=== PATIENT | male | born 1960 | race Caucasian/White ===

== ENCOUNTER 2017-11-11 17:07 | Observation (INO) | payer OTHER ==
[~2017-11-11] VITALS: Ht 165.1 cm; Wt 96.6 kg
[2017-11-11 17:22] VITALS: BP 153/93
--- NOTE | 2017-11-11 17:30 | NUR ---
PT AMBULATES TO BED 4
--- NOTE | 2017-11-11 17:59 | NUR ---
PT COMES TO ER WITH FRIEND WHO REPORTS PT IS NOT HIMSELF. PT AAOX3, SLOW TO RESPOND. NO SLURRED SPEECH, NO FACIAL DROOP NOTED. JESSICA EQUAL HAND [employer] PERSON. PT STATES "I DONT FEEL WELL". FRIEND STATES HE'S BEEN LIKE THIS GETTING WORSE OVER THE LAST 3 DAYS. PT LIVES IN A ROOM IN A HOUSE WITH ROOMATES. PT DENIES ANY CP OR SOB. RESP EVEN AND UNLABORED, ABD SOFT, NT BS X 4 QUADS. SKIN W/D/I. PT ABLE TO FOLLOW SIMPLE COMMANDS AND ANSWER QUESTIONS AT A SLOW PACE. DR HAIR IN ROOM. HL INSERTED, CT SCAN CALLED.
[2017-11-11 18:33] LABS: BASOPHILS # (AUTO) 0.1 K/uL (0.00-0.22); BASOPHILS % (AUTO) 0.7 % (0.0-2.0); EOSINOPHILS # (AUTO) 0.3 K/uL (0-0.4); EOSINOPHILS % (AUTO) 3.3 % (0.0-4.0); HEMATOCRIT 40.5 % (36-52); HEMOGLOBIN 13.2 g/dL (12.0-18.0); LYMPHOCYTES # (AUTO) 1.9 K/uL (2.0-11.5); LYMPHOCYTES % (AUTO) 20.9 % (20.5-51.1); MEAN CORPUSCULAR HEMOGLOBIN 27 pg (27-31); MEAN CORPUSCULAR HGB CONC 33 g/dL (33-37); MEAN CORPUSCULAR VOLUME 82.2 fL (80-94); MONOCYTES % (AUTO) 11.8 % (1.7-9.3); NEUTROPHILS # (AUTO) 5.6 K/uL (1.8-7.7); NEUTROPHILS % (AUTO) 63.3 % (42.2-75.2); PLATELET COUNT (AUTO) 220 K/uL (140-450); RED BLOOD CELL COUNT(AUTO) 4.93 MIL/uL (4.20-6.10); RED CELL DISTRIBUTION WIDTH 15.6 % (11.6-13.7); WHITE BLOOD COUNT (AUTO) 8.9 K/uL (4.8-10.8)
--- NOTE | 2017-11-11 18:42 | NUR ---
NO ACUTE CHANGES IN CONDITION, IN NAD. PT STATES "I FEEL BETTER" , PT DENIES DRUG/ETOH ABUSE. URINE COLLECTED AND SENT TO LAB.
[2017-11-11 18:51] LABS: ANION GAP 11.5 (8-16); CREATININE 1.1 mg/dL (0.7-1.3); POTASSIUM 3.5 mmol/L (3.5-5.1)
[2017-11-11 18:53] LABS: APPEARANCE,URINE CLEAR (CLEAR); BILIRUBIN,URINE 1+ (NEGATIVE); BLOOD, URINE NEGATIVE (NEGATIVE); LEUKOCYTE ESTERASE ,URINE NEGATIVE (NEGATIVE); NITRITE, URINE NEGATIVE (NEGATIVE); PH,URINE 5.5 (5.0-9.0); UGLUCOSE TRACE (NEGATIVE)
[2017-11-11 18:55] LABS: ALBUMIN 2.9 g/dL (3.4-5.0); TOTAL BILIRUBIN 0.3 mg/dL (0.0-1.0)
[2017-11-11 18:57] LABS: BARBITURATE, URINE NEG. ng/ml (NEG <=200); BENZODIAZEPINE, URINE NEG. ng/mL (NEG <=200); CANNABINOID, URINE NEG. ng/mL (NEG <=50); COCAINE, URINE NEG. ng/mL (NEG <=300); OPIATE, URINE NEG. ng/mL (NEG <=2000); PHENCYCLIDINE SCREEN,URINE NEG. ng/mL (NEG <=25)
[2017-11-11 18:58] LABS: COLOR,URINE AMBER (YELLOW)
--- NOTE | 2017-11-11 19:00 | NUR ---
RECEIVED REPORT FROM JOSE ST. TRANSFER OF CARE AT THIS TIME.
[2017-11-11 19:02] LABS: CREATINE KINASE MB 0.6 ng/mL (0-3.6)
--- NOTE | 2017-11-11 20:37 | NUR ---
PT POOR HISTORIAN OF HOME MED LIST. PT CANNOT RECALL AT THIS TIME.
[2017-11-11 21:50] VITALS: BP 144/96
--- NOTE | 2017-11-11 21:50 | NUR ---
PATIENT ADMITTED TO THE UNIT FOR OBSERVATION. PATIENT IS AMBULATORY. AOX3. NO SIGNS AND SYMPTOMS OF DISTRESS NOTED. NO COMPLAINTS OF PAIN AT THIS TIME. PLAN OF CARE DISCUSSED WITH PATIENT. PATIENT VERBALIZED UNDERSTANDING. IV SITE NOTED ON RIGHT AC, SALINE LOCKED. BED IN LOWEST POSITION, SIDE RAILS UP AND CALL LIGHT WITHIN REACH. WILL CONTINUE TO MONITOR.
--- NOTE | 2017-11-11 21:50 | NUR ---
Patient will be admitted to care of DR. JENSEN. Admited to TELE. Will go to room 120B. Belongings list completed. Report to [facility].
--- NOTE | 2017-11-11 23:47 | NUR ---
SPOKE TO DR. BOOKER WHO IS COVERING FOR DR. JENSEN. ASKED HER ABOUT PATIENT ORDERS, AND IF SHE WANTED HIM ON ANY IVF OR MEDS. DR. BOOKER SAID NO, JUST OBSERVE HIM FOR TONIGHT, AND TO PUT HIM ON NEUROLOGICAL ASSESSMENT.
--- NOTE | 2017-11-11 23:48 | NUR ---
DR. BOOKER ALSO AWARE OF PATIENT'S ELEVATED DIASTOLIC BP
[2017-11-12] VITALS: BP 135/90
--- NOTE | 2017-11-12 02:00 | NUR ---
CHECKED ON PATIENT. PATIENT IS ASLEEP. NO SIGNS AND SYMPTOMS OF DISTRESS NOTED. BREATHING EVEN AND UNLABORED. WILL CONTINUE TO MONITOR.
--- NOTE | 2017-11-12 04:00 | NUR ---
CHECKED ON PATIENT. PATIENT IS ASLEEP. NO SIGNS AND SYMPTOMS OF DISTRESS NOTED. BREATHING EVEN AND UNLABORED. WILL CONTINUE TO MONITOR.
[2017-11-12 05:00] VITALS: BP 145/98
--- NOTE | 2017-11-12 07:20 | NUR ---
PATIENT REPORT GIVEN TO MORNING NURSE FOR CONTINUITY OF CARE. PATIENT IS IN STABLE CONDITION
--- NOTE | 2017-11-12 07:25 | NUR ---
RECEIVED PT'S REPORT FROM RECEPTIONIST DOCTOR'S OFFICE NURSE, ZIGGY, ABOUT THE PT'S STATUS. PT IS SLEEPING ON THE BED WITH A RIGHT AC SALINE LOCK G.20. NO SIGNS OF DISTRESS NOTED AT THIS TIME. CALL LIGHT WITHIN REACH. WILL CONTINUE TO MONITOR.
--- NOTE | 2017-11-12 07:40 | NUR ---
PT IS AWAKE LYING ON THE BED, VITAL SIGNS TAKEN, BP IS ELEVATED, RESULT REVEALED 151/108. NO OTHER UNTOWARD SIGNS NOTED AT THIS TIME. CALL LIGHT WITHIN REACH. WILL RECHECK BP AGAIN.
[2017-11-12 08:00] VITALS: BP 145/98
--- NOTE | 2017-11-12 08:25 | NUR ---
PT IS AWAKE LYING ON THE BED, BP WAS RECHECKED AGAIN, RESULT REVEALED 145/98. NO SIGNS OF DISTRESS NOTED ON THE PT. CALL LIGHT WITHIN REACH. WILL CONTINUE TO MONITOR.
--- NOTE | 2017-11-12 09:25 | NUR ---
PT IS LYING ON HIS LEFT LATERAL SIDE, SLEEPING COMFORTABLY. NO SIGN OF DISTRESS NOTED. CALL LIGHT WITHIN REACH. WILL CONTINUE TO MONITOR.
[2017-11-12 09:36] LABS: ANION GAP 10.5 (8-16); POTASSIUM 3.5 mmol/L (3.5-5.1)
[2017-11-12 09:38] LABS: BASOPHILS # (AUTO) 0.1 K/uL (0.00-0.22); BASOPHILS % (AUTO) 1.4 % (0.0-2.0); EOSINOPHILS # (AUTO) 0.4 K/uL (0-0.4); HEMATOCRIT 39.8 % (36-52); HEMOGLOBIN 13.3 g/dL (12.0-18.0); LYMPHOCYTES # (AUTO) 1.9 K/uL (2.0-11.5); LYMPHOCYTES % (AUTO) 20.7 % (20.5-51.1); MEAN CORPUSCULAR HEMOGLOBIN 28 pg (27-31); MEAN CORPUSCULAR HGB CONC 33 g/dL (33-37); MEAN CORPUSCULAR VOLUME 82.8 fL (80-94); MONOCYTES # (AUTO) 1.1 K/uL (0.8-1.0); NEUTROPHILS # (AUTO) 5.8 K/uL (1.8-7.7); NEUTROPHILS % (AUTO) 62.4 % (42.2-75.2); RED BLOOD CELL COUNT(AUTO) 4.81 MIL/uL (4.20-6.10); RED CELL DISTRIBUTION WIDTH 14.4 % (11.6-13.7); WHITE BLOOD COUNT (AUTO) 9.3 K/uL (4.8-10.8)
--- NOTE | 2017-11-12 10:00 | NUR ---
PT IS AWAKE, LYING ON THE BED. NEURO ASSESSMENT DONE. PT IS MORE ALERT AND ORIENTED NOW. CALL LIGHT WITHIN REACH. NO SIGN OF DISTRESS NOTED. WILL CONTINUE TO MONITOR.
[2017-11-12 10:01] LABS: EOSINOPHILS % (AUTO) 4.2 % (0.0-4.0); MONOCYTES % (AUTO) 11.3 % (1.7-9.3); PLATELET COUNT (AUTO) 194 K/uL (140-450)
--- NOTE | 2017-11-12 10:30 | NUR ---
PT IS ASLEEP ON THE BED. NO SIGN OF DISTRESS NOTED. CALL LIGHT WITHIN REACH. WILL CONTINUE TO MONITOR.
--- NOTE | 2017-11-12 11:00 | NUR ---
PT'S BROTHER, SLIM CALLED AND ASKED ABOUT THE PT'S CONDITION. INQUIRY WAS ANSWERED AND BROTHER WAS SATISFIED.
--- NOTE | 2017-11-12 11:30 | NUR ---
PT IS AWAKE LYING ON THE BED, VITAL SIGNS TAKEN, BP RESULT REVEALED 144/102. NO SIGN OF DISTRESS NOTED AT THIS TIME. CALL LIGHT WITHIN REACH. WILL CONTINUE TO MONITOR.
--- NOTE | 2017-11-12 11:50 | NUR ---
PT WAS SEEN BY THE NEURO DOCTOR, DR. BRIGHT. PT IS SEATED ON THE BED AND WITH FOOD TRAY IN FRONT AND IS ABOUT TO EAT LUNCH. NO SIGN OF DISTRESS NOTED ON THE PT. CALL LIGHT WITHIN REACH. WILL CONTINUE TO MONITOR.
[2017-11-12 12:00] VITALS: BP 144/102
--- NOTE | 2017-11-12 12:02 | NUR ---
DR. BRIGHT ORDERED A THYROID STIMULATING HORMONE DONE. ORDER ACKNOWLEDGED.
--- NOTE | 2017-11-12 12:14 | NUR ---
PATIENT HAS BEEN SCREENED AND CATEGORIZED MODERATE NUTRITION RISK. PATIENT WILL BE SEEN WITHIN 3-5 DAYS OF ADMISSION. 11/14/17 - 11/16/17 CHRISTIANO WOODS MBA, RD
--- NOTE | 2017-11-12 12:51 | NUR ---
PT IS ASLEEP POSITIONED ON HIS LEFT LATERAL SIDE. NO SIGN OF DISTRESS NOTED AT THIS TIME. CALL LIGHT WITHIN REACH. WILL CONTINUE TO MONITOR.
[2017-11-12 16:00] VITALS: BP 147/93
--- NOTE | 2017-11-12 18:20 | NUR ---
DISCHARGE INSTRUCTIONS GIVEN TO PATIENT . PT VERBALIZED UNDERSTANDING AND AGREEMENT. NO ACUTE DISTRESS NOTED. IV SITE REMOVED. LUMEN INTACT. ID BANDS REMOVED. ALL BELONGINGS IN PATIENT POSSESSION. PATIENT DRESSED IN STREET CLOTHES. PATIENT LEFT WALKING TO LOBBY . PRIVATE VEHICLE WAITING IN FRONT.
== END 2017-11-12 18:20 | disposition home or self-care (01) ==
LOC: MED 17:07 → MTU 21:18
PROVIDERS: ADMIT Hospitalist; ATTEND Hospitalist
DX: R13.0 Aphagia (principal); E11.9 Type 2 diabetes mellitus without complications; I10 Essential (primary) hypertension; Z86.73 Personal history of transient ischemic attack (TIA), and cerebral infarction without residual deficits
CPT/HCPCS: 36415; 70450; 71045; 80048; 80053; 80305; 81003; 82550; 82553; 83880; 84443; 84484; 85025; 87081; 99285; G0378